=== PATIENT | male | born 1980 | race Caucasian/White ===

== ENCOUNTER 2022-01-16 18:05 | Emergency (ER) | payer BC, SELFPAY ==
[2022-01-16 18:14] VITALS: BP 151/94; PULSE 83; RESP 18; TEMP 36.8; O2SAT 99
--- NOTE | 2022-01-16 18:16 | ED.EXTPRO ---
HPI - Extremity Problem General Chief complaint: Extremity Injury, Lower Stated complaint: Rt Foot Pain Time Seen by Provider: 01/16/22 18:15 Source: patient and RN notes reviewed Mode of arrival: ambulatory Limitations: no limitations History of Present Illness HPI Narrative: 41-year-old male presents with concern for pain and redness to the first digit of the right foot. Reports symptoms started 7 days ago. He denies significant swelling, trauma, open skin. He reports he tried drinking anders juice and taking an [id number] uric acid reliever without relief of his symptoms. MD Complaint: extremity pain Related Data Allergies Allergy/AdvReac Type Severity Reaction Status Date / Time No Known Allergies Allergy Verified 01/16/22 18:17 Review of Systems Review of Systems: CONSTITUTIONAL: Denies malaise, chills, sweats, or fever. CARDIOVASCULAR: Denies chest pain, palpitations, or edema. RESPIRATORY: Denies cough or dyspnea. SKIN: Denies rash or itching, bruising, redness, swelling. MUSCULOSKELETAL: Reports pain, redness to the first digit of the right foot NEUROLOGIC: Denies numbness, weakness All systems reviewed & are unremarkable except as noted in HPI and below PMFSH Family History Family History (Updated 04/25/16 @ 23:19 by DOCTOR UNKNOWN) Mother Family history of diabetes mellitus in first degree relative Social History Social History Smoking status: Never smoker Alcohol intake: current Comments At time of signature, agree with nursing past medical, surgical, social and family history. There is no relevant family history pertinent to the presenting complaint Exam Narrative: GENERAL: Well-appearing, well-nourished, and in no acute distress. HEAD: Normocephalic, atraumatic. EYES: PERRLA, conjunctivae clear NECK: Supple. CHEST: Speaks in full sentences. No respiratory distress. HEART: Regular rate and rhythm. Normal and equal peripheral pulses. EXTREMITIES: First digit of right foot has normal strength and sensation, normal range of motion. No edema or ecchymosis. Erythema and warmth noted to the base of the digit. 5/5 strength with digit flexion and extension. Normal sensation with sensitivity to light touch and pain. General digit tenderness. No open wounds, no skin tenting, no devitalized tissue or atrophy, no trophic changes, no obvious deformity, alignment normal, nearby joints and structures intact. Distal pulses palpable and equal bilaterally, skin warm, dry, pink. Capillary refill less than 3 seconds. SKIN: Warm, dry, no rash. NEURO: Alert and oriented x3. PSYCH: Normal mood and affect Course Course Emergency Course: Patient is aware of diagnosis, understands and agrees to treatment plan. Anticipatory guidance given. Patient agrees to follow-up as directed and is aware of reasons to seek care at the emergency department. Portions of this record may have been created with voice recognition software Level of Care: Express Care Visit Vital Signs Vital signs: Vital Signs Temperature 98.2 F 01/16/22 18:14 Pulse Rate 83 01/16/22 18:14 Respiratory Rate 18 01/16/22 18:14 Blood Pressure 151/94 H 01/16/22 18:14 Pulse Oximetry 99 01/16/22 18:14 Temperature 98.2 F 01/16/22 18:14 Pulse Rate 83 01/16/22 18:14 Respiratory Rate 18 01/16/22 18:14 Blood Pressure 151/94 H 01/16/22 18:14 Pulse Oximetry 99 01/16/22 18:14 Reviewed. MDM - Extremity (Nontraumatic) MDM Narrative Medical decision making narrative: Exam findings show no acute concerns or changes; patient is non-toxic appearing and is in no distress. Patient is appropriate for outpatient treatment and follow-up. Critical Care Time Critical Care Time Critical Care Time: No Discharge Plan Discharge Clinical Impression: Gout Qualifiers: Gout site: toe Gout etiology: idiopathic Chronicity: acute Laterality: right Qualified Code(s): M10.071 - Idiopathic gout, right ankle and foot Patient Disposit
== END 2022-01-16 18:30 | disposition home or self-care (01) ==
PROVIDERS: Emergency Provider Nurse Practitioner
DX: M10.071 Idiopathic gout, right ankle and foot (principal)
CPT/HCPCS: 99213; G0463

== ENCOUNTER 2023-02-24 17:26 | Emergency (ER) | payer BC, SELFPAY ==
[2023-02-24 17:40] VITALS: BP 130/92; PULSE 91; RESP 16; TEMP 36.6; O2SAT 99
--- NOTE | 2023-02-24 17:49 | ED.URI ---
HPI - URI/Sore Throat General Chief Complaint: Upper Respiratory Infection Stated Complaint: sorethroat,cough Time Seen by Provider: 02/24/23 17:49 Source: patient, RN notes reviewed and old records reviewed Mode of arrival: ambulatory Limitations: no limitations History of Present Illness HPI Narrative: 43-year-old male presents to the [facility] with complaints of a sore throat cough for 4 days. Denies fevers. Has tried multiple [id number] products with no relief. MD elicited complaint: sore throat Related Data Allergies Allergy/AdvReac Type Severity Reaction Status Date / Time No Known Allergies Allergy Verified 02/24/23 17:32 Review of Systems Review of Systems: All systems reviewed & are unremarkable except as noted in HPI and below Constitutional: Constitutional: Reports no additional constitutional complaints Eyes: Eyes: Reports no additional eye complaints ENT: Reports as per HPI and Reports sore throat Cardiovascular: Cardiovascular: Reports no additional cardiovascular complaints, Denies chest pain and Denies dyspnea Respiratory: Respiratory: Reports as per HPI, Denies chest congestion, Reports cough and Denies dyspnea Gastrointestinal: Gastrointestinal: Reports no additional gastrointestinal complaints, Denies abdominal pain, Denies nausea and Denies vomiting Musculoskeletal: Musculoskeletal: Reports no additional musculoskeletal complaints Integumentary/Breasts: Skin/Breast: Reports system reviewed and no additional complaints, except as docu Neurologic: Reports system reviewed and no additional complaints, except as documented Psychiatric: Psychiatric: Reports no additional psychiatric complaints Allergic/Immunologic: Allergic/Immunologic: Reports no additional allergic/immunologic complaints [facility] Past Medical History Medical History Gout Family History Family History Mother Family history of diabetes mellitus in first degree relative Heart disease Father Heart disease Social History Social History Smoking status: Never smoker Alcohol intake: current Substance use: never Living arrangements: alone Occupation/Education: occupation 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 There is no relevant family history pertinent to the patient complaint. Exam Const: General: cooperative, healthy appearing, comfortable, no acute distress, well developed, alert and well nourished Nutritional Appearance: well nourished Orientation/consciousness: patient oriented x3 Limitations: no limitations HENMT: Head: normal to inspection Ears: hearing grossly normal bilaterally and external ears normal Face/Nose/Sinus: Normal external nose present, Normal nares present, Normal nasal mucous membranes and turbinates present and normal facial exam Face and sinus: normal facial exam Mouth: Yes Normal oral and palatal mucosa present, Yes lip normal and Yes moist mucous membranes Throat: posterior oropharynx normal, uvula midline and abnormal tonsil bilateral erythema, exudates and hypertrophy 3+ Eyes: General: appearance normal, both eyes and all related structures Alignment and Position: alignment normal Periorbital: periorbital findings normal Pupils: Equal, round and reactive pupils present EOM: EOMs intact bilaterally Neck: Neck: normal visual inspection, full ROM, no lymphadenopathy and no meningeal signs Chest: Chest palpation & inspection: normal inspection of the chest Resp: Effort & Inspection: normal respiratory effort and able to speak in complete sentences Auscultation: clear to auscultation bilaterally, no crackles, no rales, no r
== END 2023-02-24 18:00 | disposition home or self-care (01) ==
PROVIDERS: Emergency Provider Nurse Practitioner
DX: J02.0 Streptococcal pharyngitis (principal); M10.9 Gout, unspecified
CPT/HCPCS: 87880; 99213; G0463

== ENCOUNTER 2023-05-06 18:07 | Emergency (ER) | payer BC, SELFPAY ==
[2023-05-06 18:18] VITALS: BP 134/76; PULSE 64; RESP 18; TEMP 36.3; O2SAT 100
[2023-05-06 18:19] VITALS: BP 134/76; PULSE 64; RESP 18; TEMP 36.3; O2SAT 100
--- NOTE | 2023-05-06 18:22 | ED.URI ---
HPI - URI/Sore Throat General Chief Complaint: Upper Respiratory Infection Stated Complaint: sorethroat,congestion Time Seen by Provider: 05/06/23 18:22 Source: patient Mode of arrival: ambulatory Limitations: no limitations History of Present Illness HPI Narrative: 43-year-old male presents with complaint of postnasal drainage, chest congestion , sore throat and cough for 10 days. patient reports that he did have headaches and some nasal congestion but that has resolved. States that voices worse, cough is not getting better. Is taking Mucinex during the day and [place] cold and flu at night. Denies shortness of breath. Afebrile. All systems reviewed and negative except as noted above. Related Data Allergies Allergy/AdvReac Type Severity Reaction Status Date / Time No Known Allergies Allergy Verified 05/06/23 18:18 Review of Systems Review of Systems: CONSTITUTIONAL: Denies fever, chills, or sweats. reports fatigue. EYES: Denies visual changes, redness, or discharge. ENT: Denies rhinorrhea, congestion. Reports sore throat, hoarse voice. Denies otalgia. CARDIOVASCULAR: Denies chest pain, palpitations, or edema. RESPIRATORY: Reports cough, chest congestion. Denies dyspnea. GASTROINTESTINAL: Denies abdominal pain, nausea, vomiting, or diarrhea. GENITOURINARY: Denies dysuria or hematuria. SKIN: Denies rash or itching. MUSCULOSKELETAL: Denies back pain, joint pain, or myalgia. NEUROLOGIC: Denies headache, numbness, or weakness. PSYCHIATRIC: Denies anxiety or depression. All other systems reviewed are negative, except as documented in HPI. 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 There is no relevant family history pertinent to the presenting complaint. Exam Narrative: GENERAL: This is a well-nourished, well-developed patient, in no apparent distress. HEAD: normocephalic, atraumatic. EYES: PERRL. Sclera clear/white. Vision is grossly intact. EARS: External ears normal, auditory canals clear and without drainage, TMs normal without perforation. Hearing grossly intact. NOSE: External nose normal with no obvious nasal discharge, nares without redness, no rhinorrhea. THROAT: Mucous membranes moist, erythematous, tonsils 2+ bilaterally without exudates. NECK: Neck supple, non-tender without lymphadenopathy, masses or thyromegaly. CARDIOVASCULAR: Regular rate and rhythm without murmurs, gallops, or rubs. RESPIRATORY: Right lung penn slightly decreased compared to left lung penn.. No wheezes, rales, or rhonchi. SKIN: warm, Dry, intact with no suspicious lesions or rash, good texture and turgor. NEURO: awake, alert, and oriented to person, place and time. There were no obvious focal neurologic abnormalities. EXTREMITIES: No joint tenderness, effusion, or edema noted. Course Course Level of Care: Express Care Visit Vital Signs Vital signs: Vital Signs Temperature 36.3 C L 05/06/23 18:18 Pulse Rate 64 05/06/23 18:18 Respiratory Rate 18 05/06/23 18:18 Blood Pressure 134/76 05/06/23 18:18 Pulse Oximetry 100 05/06/23 18:18 Oxygen Delivery Room Air 05/06/23 18:18 Temperature 36.3 C L 05/06/23 18:19 Pulse Rate 64 05/06/23 18:19 Respiratory Rate 18 05/06/23 18:19 Blood Pressure
== END 2023-05-06 18:31 | disposition home or self-care (01) ==
PROVIDERS: Emergency Provider Nurse Practitioner Family
DX: J06.9 Acute upper respiratory infection, unspecified (principal); M10.9 Gout, unspecified
CPT/HCPCS: 99213; G0463

== ENCOUNTER 2023-06-09 14:13 | Emergency (ER) | payer OTHER, BC, SELFPAY ==
--- NOTE | ~2023-06-09 | XR_ITS ---
EXAM: XR finger 5th RT min 2V DATE: 06/09/2023 17:04 HISTORY: post reduction . COMPARISON: None available. FINDINGS/IMPRESSION: Interval right fifth PIP joint dislocation reduction with improved alignment but mild persistent post erior subluxation/angulation. Distracted, possibly chronic volar plate avulsion fracture fragment. Reviewed, dictated and finalized at location K.
--- NOTE | ~2023-06-09 | XR_ITS ---
EXAMINATION: 1. XR hand RT 2V 2. XR finger 5th RT min 2V DATE: 06/09/2023 14:31 INDICATION: Right hand fifth digit dislocation. TECHNIQUE: 3 views of right hand and 3 views of right hand fifth digit were obtained. COMPARISON: None. FINDINGS: RIGHT HAND FIFTH DIGIT: There is dorsal dislocation of fifth middle phalanx with respect to the proxi mal phalanx. There is a nondisplaced fracture of fifth middle phalanx involving the proximal articula r surface. 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 RIGHT HAND: Again seen is the dorsal dislocation of fifth middle phalanx with respect to the proximal phalanx with fracture of the proximal articular surface of fifth middle phalanx. There is an old hea led fracture of diaphysis of fifth metacarpal. There is mild osteoarthritis of some of the interphala ngeal joints and second metacarpophalangeal joint. IMPRESSION: 1. Dislocation of fifth proximal interphalangeal joint. 2. Nondisplaced fracture of fifth middle phalanx involving the proximal articular surface. Reviewed, dictated and finalized at location A. IMPRESSION: 1. Dislocation of fifth proximal interphalangeal joint. 2. Nondisplaced fracture of fifth middle phalanx involving the proximal articul ar surface.
[2023-06-09 14:14] VITALS: BP 133/79; PULSE 63; RESP 15; TEMP 36.8; O2SAT 100
--- NOTE | 2023-06-09 16:41 | ED.GENADULT ---
HPI - General Adult General Chief complaint: Extremity Injury, Upper Stated complaint: finger injury Time Seen by Provider: 06/09/23 16:35 History of Present Illness HPI narrative: 43-year-old male presented the emergency department for evaluation of a dislocation of his right fifth finger. Patient reports he jammed the finger while he was moving a piece of equipment. Patient attempted to reduce the finger at home without success. 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 HEAD: normocephalic, atraumatic. EYES: PERRLA/EOMI, conjunctivae clear. NOSE: Normal no drainage MUSCULOSKELETAL: Deformed right fifth finger at the PIP joint NEURO: Alert. Cranial nerves II through XII intact. Good gait. Good coordination SKIN: Warm, dry. Normal Color Course Course Emergency Course: 43 female presented ED for evaluation of of a dislocation of his fifth finger. Patient elected to have the finger reduced without anesthetic and this was easily achieved. After reduction patient had full range of motion of the finger and felt that his pain resolved. Patient had full flexion of the finger with no complaint. X-ray did show a possible acute versus chronic avulsion fracture. Patient was placed in a splint and encouraged of close follow-up with Dr. Martino. All questions and concerns were addressed. Vital Signs Vital signs: Vital Signs Temperature 98.3 F 06/09/23 14:14 Pulse Rate 63 06/09/23 14:14 Respiratory Rate 15 06/09/23 14:14 Blood Pressure 133/79 06/09/23 14:14 Pulse Oximetry 100 06/09/23 14:14 Oxygen Delivery Room Air 06/09/23 14:14 Temperature 98.3 F 06/09/23 14:14 Pulse Rate 63 06/09/23 14:14 Respiratory Rate 15 06/09/23 14:14 Blood Pressure 133/79 06/09/23 14:14 Pulse Oximetry 100 06/09/23 14:14 Oxygen Delivery Room Air 06/09/23 14:14 Procedures Orthopedic Joint Reduction Joint #1: Time Out Performed: Yes Side: right Joint Reduction Location: finger Analgesia: none Pre-Procedure Neuro Vascular Exam: normal Shoulder Technique Used (if applicable): traction/counter-traction Technique used: traction/counter-traction Post-reduction neuro exam: intact and no change Post-reduction vascular: intact and no change Post Reduction X-Ray Obtained: Yes Post Reduction X-Ray Results: reduced Splint Applied: Yes Patient Tolerated Procedure: well and no complications Medical Decision Making Vital Signs Vital Signs: Vital Signs Temperature 98.3 F 06/09/23 14:14 Pulse Rate 63 06/09/23 14:14 Respiratory Rate 15 06/09/23 14:14 Blood Pressure 133/79 06/09/23 14:14 Pulse Oximetry 100 06/09/23 14:14 Oxygen Delivery Room Air 06/09/23 14:14 Temperature 98.3 F 06/09/23 14:14 Pulse Rate 63 06/09/23 14:14 Respiratory Rate 15 06/09/23 14:14 Blood Pressure 133/79 06/09/23 14:14 Pulse Oximetry 100 06/09/23 14:14 Oxygen Delivery Room Air 06/09/23 14:14
== END 2023-06-09 17:37 | disposition home or self-care (01) ==
PROVIDERS: Emergency Provider Emergency Medicine
DX: S62.656A Nondisplaced fracture of middle phalanx of right little finger, initial encounter for closed fracture (principal); M10.9 Gout, unspecified; W22.8XXA Striking against or struck by other objects, initial encounter
CPT/HCPCS: 26770; 73120; 73140; 99285

== ENCOUNTER 2023-07-21 12:23 | Emergency (ER) | payer BC, SELFPAY ==
[2023-07-21 12:55] VITALS: BP 137/82; PULSE 77; RESP 18; TEMP 36.6; O2SAT 99
--- NOTE | 2023-07-21 13:10 | ED.URI ---
HPI - URI/Sore Throat General Chief Complaint: Upper Respiratory Infection Stated Complaint: sorethroat Time Seen by Provider: 07/21/23 12:55 Source: patient Mode of arrival: ambulatory Limitations: no limitations History of Present Illness HPI Narrative: Dae is a 43-year-old male patient presenting to the clinic today with complaints of a 3 day history of sore throat, headache, and fever. He reports highest fever was 102. States the headache and the fever has improved however he is having a really bad sore throat difficulty swallowing. MD elicited complaint: fever and sore throat Related Data Allergies Allergy/AdvReac Type Severity Reaction Status Date / Time No Known Allergies Allergy Verified 07/21/23 13:08 Review of Systems Review of Systems: Pertinent positives per HPI. Patient denies any rash,visual changes, dizziness, cough, shortness of breath, chest pain, palpitations, nausea, vomiting, diarrhea, constipation, abdominal pain, or any urinary issues. 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 There is no relevant family history pertinent to the patient complaint. Exam Narrative: General: Well-developed, well nourished, in no apparent distress Head: Normocephalic, atraumatic Eyes: Pupils equally round and reactive to light bilaterally, EOM intact, sclera and conjunctive clear, no discharge, lids normal Ears: TMs intact and clear, ear canals clear, no drainage, grossly hearing normal. Nose: Nares patent, no discharge, no inflammation, no sinus tenderness. Mouth: Oral pharynx red with bilateral tonsillar enlargement without lesions or masses, good dentition, MMM. Neck: Supple, trachea midline, enlargement of anterior cervical nodes, no thyroid masses or goiter palpable. Cardio: Regular rate and rhythm, s1 and s2 normal, no murmur appreciated. Resp: Clear to auscultation bilaterally, no rhonchi, rales, wheezing or rubs Course Course Emergency Course: Portions of this record may have been created with voice recognition software. Level of Care: Express Care Visit Vital Signs Vital signs: Vital Signs Temperature 36.6 C 07/21/23 12:55 Pulse Rate 77 07/21/23 12:55 Respiratory Rate 18 07/21/23 12:55 Blood Pressure 137/82 07/21/23 12:55 Pulse Oximetry 99 07/21/23 12:55 Oxygen Delivery Room Air 07/21/23 12:55 Temperature 36.6 C 07/21/23 12:55 Pulse Rate 77 07/21/23 12:55 Respiratory Rate 18 07/21/23 12:55 Blood Pressure 137/82 07/21/23 12:55 Pulse Oximetry 99 07/21/23 12:55 Oxygen Delivery Room Air 07/21/23 12:55 Vital signs reviewed MDM - URI/Sore Throat MDM Narrative Medical decision making narrative: At the time of visit patient is resting comfortably on the exam table. Strep screen was obtained and positive. Prescription for amoxicillin was sent to the pharmacy supportive measures were discussed with the patient he voiced understanding discharge instructions agrees to treatment plan. Differential Diagnosis Differential diagnosis: Likely upper respiratory infection, otitis media, sinusitis, viral infection, bronchitis, influenza, pharyngitis and other (COVID) Lab Data Labs: Strep Screen Positive Group A St
== END 2023-07-21 13:15 | disposition home or self-care (01) ==
PROVIDERS: Emergency Provider Nurse Practitioner Family
DX: J02.0 Streptococcal pharyngitis (principal); M10.9 Gout, unspecified
CPT/HCPCS: 87880; 99213; G0463